=== PATIENT | male | born 1980 | race Two or more races ===

== ENCOUNTER 2017-11-26 19:21 | Emergency (ER) | payer OTHER ==
[~2017-11-26] VITALS: Ht 180.3 cm; Wt 86.2 kg
--- NOTE | 2017-11-26 19:40 | NUR ---
PT [facility] FOR METH USE C/O BUTT PAIN, TESTICULAR PAIN. SEEN BY MD FOR EVAL. VSS. NOTED RESTLESS, ANXIOUS. SAFETY AND COMFORT MEASURES PROVIDED. WILL MONITOR.
[2017-11-26] MEDS ORDERED: HYDROCODONE/APAP 10/325MG 1 EA TABLET PO ONE (20:00)
[2017-11-26] MEDS ORDERED: HYDROCODONE/APAP 10/325MG 1 EA TABLET ONE (20:01)
[2017-11-26] MEDS ORDERED: FENTANYL PF 100MCG/2ML AMPUL ONE (20:10)
--- NOTE | 2017-11-26 20:19 | NUR ---
IV ACCESS STARTED. BLOOD DRAWN FOR LABS. MEDICATED ORDERED.
[2017-11-26 20:21] LABS: BASOPHILS % (AUTO) 0.4 % (0.0-2.0); EOSINOPHILS % (AUTO) 0.4 % (0.0-6.0); HEMATOCRIT 38 % (39-51); HEMOGLOBIN 12.9 g/dL (13.5-17.5); LYMPHOCYTES # (AUTO) 1.6 /CMM (0.8-4.8); MEAN CORPUSCULAR HGB CONC 34 g/dl (31.0-36.0); MEAN CORPUSCULAR VOLUME 88 fL (80-96); MONOCYTES # (AUTO) 0.7 /CMM (0.1-1.30); MONOCYTES % (AUTO) 7.2 % (2.0-12.0); NEUTROPHILS # (AUTO) 6.8 /CMM (1.8-8.9); PLATELET COUNT (AUTO) 208 /CMM (150-450); RDW COEFFICIENT OF VARIATION 12.2 (11.5-15.0); RED BLOOD CELL COUNT(AUTO) 4.31 MIL/uL (4.5-6.0); WHITE BLOOD COUNT (AUTO) 9.1 K/uL (4.3-11.0)
[2017-11-26] MEDS ORDERED: FENTANYL PF 100MCG/2ML AMPUL IV ONE (20:30)
[2017-11-26] MEDS ORDERED: IV NS 0.9% 1,000 ML BAG IV ONE (20:30)
[2017-11-26 20:31] LABS: CALCIUM, SERUM 8.2 mg/dL (8.5-10.1); CREATININE 1.1 mg/dL (0.6-1.3); POTASSIUM 3.9 mmol/L (3.5-5.1)
[2017-11-26 20:37] LABS: ALBUMIN 3.7 g/dL (3.4-5.0); BILIRUBIN,DIRECT 0.1 mg/dL (0.0-0.2); BILIRUBIN,TOTAL 0.3 mg/dL (0.2-1.0); TOTAL PROTEIN, SERUM 7.3 g/dL (6.4-8.2)
--- NOTE | 2017-11-26 20:45 | NUR ---
PT TAKEN TO CT.
--- NOTE | 2017-11-26 21:46 | NUR ---
CALLED SURGERY DISPENSING LEAD DR MUNSON, ON THE PHONE WITH DR WILL.
[2017-11-26] MEDS ORDERED: KETOROLAC TROMETHAMINE INJ 30 MG/ML VIAL IV ONE (22:00)
[2017-11-26] MEDS ORDERED: KETOROLAC TROMETHAMINE INJ 30 MG/ML VIAL ONE (22:02)
[2017-11-26 22:50] VITALS: BP 155/88
--- NOTE | 2017-11-26 23:12 | NUR ---
DIRECTOR OF INFECTION PREVENTION FROM [facility] MER CHAVEZ PATIENT WILL BE TRANSFERED TO [facility] BED 312-C ACCEPTING NUMBER TO GIVE REPORT
--- NOTE | 2017-11-26 23:18 | NUR ---
CALLED [facility] FOR TRANSPORT ETA OF [id number] WAS GIVEN. TRIP#[id number]
--- NOTE | 2017-11-26 23:39 | NUR ---
REPORT GIVEN TO FREDDY QUIROGA FROM [facility].
--- NOTE | 2017-11-26 23:56 | NUR ---
[facility] GIV[facility] TO [facility] TO [facility].
== END 2017-11-26 23:58 | disposition short-term general hospital (02) ==
LOC: ER 19:23
DX: K40.90 Unilateral inguinal hernia, without obstruction or gangrene, not specified as recurrent (principal); F15.10 Other stimulant abuse, uncomplicated; K65.4 Sclerosing mesenteritis; K59.00 Constipation, unspecified
CPT/HCPCS: 36415; 74176; 80048; 80076; 85025; 87081; 96361; 96374; 96375; 99285; A4606; J1885; J3010; J7030; J7040; Z7610

== ENCOUNTER 2017-12-04 08:21 | Emergency (ER) | payer OTHER ==
[~2017-12-04] VITALS: Ht 180.3 cm; Wt 86.2 kg
[2017-12-04 08:27] VITALS: BP 147/82
[2017-12-04] MEDS ORDERED: ACETAMINOPHEN ES 500 MG TABLET PO ONE (08:30)
[2017-12-04] MEDS ORDERED: ACETAMINOPHEN ES 500 MG TABLET ONE (08:36)
== END 2017-12-04 08:46 | disposition home or self-care (01) ==
LOC: ER 08:26
DX: K40.90 Unilateral inguinal hernia, without obstruction or gangrene, not specified as recurrent (principal)
CPT/HCPCS: A4606; Z7610